=== PATIENT | male | born 1990 | race Caucasian/White ===

== ENCOUNTER 2019-05-05 10:20 | Emergency (ER) | payer OTHER ==
[~2019-05-05] VITALS: Ht 198.1 cm; Wt 146.0 kg
[2019-05-05 11:46] VITALS: BP 141/90
== END 2019-05-05 11:57 | disposition home or self-care (01) ==
LOC: M ED 10:20
DX: M25.562 Pain in left knee (principal); Z88.0 Allergy status to penicillin; F17.220 Nicotine dependence, chewing tobacco, uncomplicated